=== PATIENT | female | born 1965 | race Caucasian/White ===

== ENCOUNTER → 2022-08-26 | Outpatient (CLI) | payer OTHER, SELFPAY ==
[2022-08-26 11:09] LABS: Follicle Stimulating Hormone 26.3 mIU/mL
[2022-08-28 15:12] LABS: Cancer Antigen 125 21.9 U/mL (0.0-38.1); Carbohydrate Ag 19-9 2261 17 U/mL (0-35); Carcinoembryonic Antigen 1.6 ng/mL (0.0-4.7)
== END | disposition home or self-care (01) ==
LOC: WOBLAB 09:23
PROVIDERS: PCP Obstetrics & Gynecology; Visit Provider Obstetrics & Gynecology
DX: N83.202 Unspecified ovarian cyst, left side (principal)
CPT/HCPCS: 36415; 82378; 83001; 83002; 86301; 86304

== ENCOUNTER → 2022-08-26 | Outpatient (CLI) | payer SELFPAY, OTHER ==
--- NOTE | 2022-08-26 07:29 | BI_ITS ---
MAMMOGRAPHY - BILATERAL SCREENING REASON FOR EXAM: Female, 57 years old. Routine annual screening examination. PERTINENT HISTORY: Non-contributory. TECHNIQUE: Digital bilateral breast paradise (3D mammographic acquisition) in the CC and MLO projections. 2-D mediolateral oblique (MLO) and craniocaudad (CC) views of both breasts were obtained. CAD: Full Field Digital Mammography with Computer Added Detection was performed. COMPARISON: None. Baseline examination. FINDINGS: Breast Composition: The breasts are almost entirely fatty. There are no dominant masses or suspicious calcifications. Small benign-appearing bilateral axillary lymph nodes. No other significant abnormalities are identified. BI/SCRN MAMM (CAD)W/PARADISE BILAT IMPRESSION: Negative screening mammogram. Yearly followup mammogram recommended. (A) ASSESSMENT CATEGORY: BIRADS Category 2: Benign. A letter regarding these results will be sent to the patient by the facility within 30 days. Approximately 10% of breast cancers are not detected by mammography. A normal mammogram should not delay biopsy of a clinically suspicious abnormality. [id number] Electronically Signed: Donny Rivas MD at 9:00 EST ,
== END | disposition home or self-care (01) ==
PROVIDERS: PCP Obstetrics & Gynecology; Referring Provider Obstetrics & Gynecology; Visit Provider Obstetrics & Gynecology
DX: Z12.31 Encounter for screening mammogram for malignant neoplasm of breast (principal)
CPT/HCPCS: 77063; 77067

== ENCOUNTER 2023-04-24 15:10 | Emergency (ER) | payer OTHER, SELFPAY ==
[2023-04-24 15:11] VITALS: BP 132/90; PULSE 121; RESP 18; TEMP 37; O2SAT 96
[2023-04-24 15:20] VITALS: BP 149/94; PULSE 116; RESP 22; O2SAT 98
--- NOTE | 2023-04-24 15:26 | EKG12_ITS ---
Test Reason : CP Blood Pressure : / mmHG Vent. Rate : 114 BPM Atrial Rate : 114 BPM P-R Int : 156 ms QRS Dur : 080 ms QT Int : 326 ms P-R-T Axes : 063 034 020 degrees QTc Int : 449 ms Sinus tachycardia Inferior infarct , age undetermined Abnormal ECG Confirmed by JENIFFER FLORES, TODD ([id number]), school photograph editor TODD BLAND ([id number]) on 04/26/2023 11:08:38 A M Referred By: AR Confirmed By:ОЛЬГА SWIFT MD
--- NOTE | 2023-04-24 15:30 | RAD_ITS ---
EXAM: XR CHEST, 1 VIEW CLINICAL INDICATION: chest pain TECHNIQUE: Frontal view of the chest. COMPARISON: No relevant prior studies available. FINDINGS: LUNGS AND PLEURAL SPACES: Unremarkable. No consolidation or edema. No pneumothorax. No effusion. HEART: Unremarkable. Cardiac silhouette not enlarged. MEDIASTINUM: Central airways and mediastinal contour are unremarkable. BONES/JOINTS: Unremarkable. SOFT TISSUES: Unremarkable. RAD/Chest 1 View (Portable) IMPRESSION: No radiographic evidence of acute cardiopulmonary disease. Electronically Signed: Todd Alonzo MD at 15:49 EDT ,
[2023-04-24] MEDS: Aspirin 81 MG TAB.CHEW 324 MG PO (15:33)
[2023-04-24 15:35] LABS: Absolute Lymphocyte Count 3.04 X10^3/uL (0.83-4.51); Absolute Neutrophil Count 4.6 X10^3/uL (2.0-7.7); Basophil# 0.08 X10^3/uL; Basophil% 0.9 % (0-1); Eosinophil# 0.12 X10^3/uL; Eosinophils% 1.4 % (0-5); Hematocrit 47.4 % (37-47); Hemoglobin 15.8 g/dL (12.0-15.0); Lymphocyte # 3.04 X10^3/ul (0.83-4.51); Lymphocyte % 34.9 % (19-41); Mean Corp Hgb Conc 33.3 g/dL (32-36); Mean Corpuscular Hgb 31.3 pg (27.0-32.0); Mean Corpuscular Volume 93.9 fL (81-99); Monocyte# 0.82 X10^3/uL; Monocyte% 9.4 % (0-10); NRBC Flagged by Analyzer 0 % (0-5); Neutrophil # 4.62 X10^3/uL (2.7-7.7); Neutrophil % 53.2 % (47-70); Platelet Count 288 K/mm3 (150-450); RBC Distribution Width CV 11.8 % (11.6-14.6); RBC Distribution Width SD 40.6 fl (35.1-43.9); Red Blood Count 5.05 M/mm3 (4.2-5.4); White Blood Count 8.7 K/mm3 (4.4-11.0)
[2023-04-24 15:55] LABS: Anion Gap 8 (5-15); BUN 25 mg/dL (7-18); BUN/Creat Ratio 21.4 RATIO (10-20); Calcium,Total 9.6 mg/dL (8.5-10.1); Chloride 102 mmol/L (98-107); Creatinine, Serum 1.17 mg/dL (0.55-1.02); EST Glomerular Filtration Rate 51 mL/min (>60); Est Glom Filt Rate - Afr Amer 61 mL/min (>60); Estimated Creatinine Clearance 77.61 ml/min; Glucose 115 mg/dL (74-106); Potassium 4.4 mmol/L (3.5-5.1); Sodium Level 134 mmol/L (136-145); Troponin-I HS (w/2H Reflex) 9 pg/mL (3.0-54.0)
--- NOTE | 2023-04-24 15:55 | ED.VIS.CHEST ---
HPI History of Present Illness Chief Complaint: Chest Pain Narrative Narrative: Patient presents with ongoing chest discomfort episodes and some dyspnea. It sounds like this has been going on for some months. But she cannot tell me how long the chest discomfort lasts when she gets it. She states it comes and goes but cannot define those time periods. I cannot get of this last minutes to hours or days. She saw her physician about 6 days ago. She was started on Lasix and telmisartan. She states the chest discomfort has gotten a little better since then. I cannot get what prompted her to come in here today versus one of the other days. Of note, she was seen quickly initially. She came in about the same time as a patient with a STEMI who was bradycardic and hypotensive and I had to initiate her work-up and then will go back and get more history. PFSH PFS Medical History Heart failure Hypertension Home Medications albuterol sulfate 90 mcg/actuation aerosol inhaler (Ventolin HFA) 2 puff inhalation Q4H PRN PRN Wheezing ##1 04/24/23 [Rx Last Taken Unknown] furosemide 40 mg tablet (Lasix) 40 mg PO DAILY 04/24/23 [History Last Taken 04/24/23] omeprazole 20 mg capsule,delayed release 20 mg PO DAILY #30 CAPSULES 04/24/23 [Rx Last Taken Unknown] telmisartan 40 mg tablet 40 mg PO DAILY 04/24/23 [History Last Taken 04/24/23] Allergy/AdvReac Type Severity Reaction Status Date / Time No Known Allergies Allergy Verified 04/24/23 15:13 Surgical History H/O: hysterectomy Social History Smoking Status: Never smoker ROS ROS ED ROS Narrative A complete review of systems was performed and is negative except as documented in the history of present illness. Some specific details below. Constitutional: No recent fevers or chills. EYE: No discharge, visual complaints, or pain. ENT: No difficulty swallowing. No swelling. No pain. No reflux symptoms. CV: See history of present illness. I am not sure if she is ever had an echocardiogram. Respiratory: See history of present illness. GI: No abdominal pain. No nausea vomiting diarrhea. No blood in stool. : No frequency dysuria or hematuria. Musculoskeletal: No recent trauma. No pains. No swelling now or at any time. Skin: No rash. Nondiaphoretic. Neuro: No weakness or numbness. Endocrine: No polyuria or polydipsia. EXAM Physical Exam Narrative Exam Narrative: CONSTITUTIONAL: Patient is nontoxic in appearance. The patient looks comfortable. Work of breathing looks normal. HEENT: No notable trauma. Mucous membranes moist. No sinus tenderness. No indication of pain with swallowing. EYES: No conjunctival injection. No proptosis. NECK:No JVD. No stridor. CARDIOVASCULAR: Mildly tachycardic rate. She does not know when this rate increased or if its been there for a long time. Regular rhythm. No notable murmur. No JVD. RESPIRATORY: No respiratory distress. Breathing is unlabored. No wheezes. No rhonchi. No rales are heard in any area. No pain with a deep breath. No chest wall tenderness. GASTROINTESTINAL: Not distended. Bowel sounds are normal. No tenderness. No guarding. No rebound. No palpable mass. No bruit is heard. GENITOURINARY: No tenderness over the bladder. No CVA tenderness. MUSCULOSKELETAL: Atraumatic. No peripheral edema at all. No cord. No tenderness along the deep venous system. No asymmetry. No distended veins. NEUROLOGICAL: Patient is alert and appropriate. No focal deficit noted. SKIN: No noted rashes. No diaphoresis. PSYCHIATRIC: Patient is calm. Mood is appropriate. Const Vital Signs: 04/24/23 15:11 04/24/23 15:24 04/24/23 15:20 Temperature 98.6 F Temperature Source Temporal Pulse Rate 121 H 116 H Respiratory Rate 18 22 H Respiratory Pattern Normal Blood Pressure 132/90 H 149/94 H Blood Pressure Mean 104 112 Pulse Ox 96 98 Oxygen Delivery Method Room Air Room Air 04/24/23 16:00 04/24/23 16:30 04/24/23 15:26 Temperature Temperature Source Pulse Rate 102 H 93 Respiratory Rate 13 15 Respiratory Pattern Blood Pressure 125/89 H 136/87 H Blood Pressure Mean 101 103 Pulse Ox 98 98 Oxygen Delivery Method Room Air Room Air Room Air 04/24/23 18:55 Temperature Temperature Source Pulse Rate 88 Respiratory Rate 18 Respiratory Pattern Blood Pressure 140/83 H Blood Pressure Mean 102 Pulse Ox 99 Oxygen Delivery Method Room Air MDM MDM MDM Narrative Medical decision making narrative: Further information from patient. She has no travel surgery immobilization personal family history of DVT or PE. No strong family history of heart disease. She has never had echocardiogram. She has never had viral cardiomyopathy or any known heart problems. Patient CBC showed mild elevation of the hemoglobin which is nonspecific. Platelets white count are normal. Electrolytes show minimal elevation in creatinine and glucose. No other acute abnormalities. Troponin is negative despite extensive symptoms. Beta natruretic peptide is less than 2/not measurable. My independent interpretation of the patient's single view chest x-ray shows no acute process. Mediastinum and cardiac silhouette looks normal. No sign of CHF. Final reading is also negative. With the patient's pain dyspnea weakness tachycardia we will do CTA of the chest. This is pending. CTA showing no sign of dissection or pulmonary embolus or other acute process to explain her symptoms. There is a age-indeterminate T12 fracture. Although she gets some pains in the chest its not in this area. I explained to the patient that she has been having dyspnea overall decrease in energy and some chest pain for a while now. I am not seeing signs of congestive heart failure. Her CT and BNP is normal. Her troponin and repeat troponin are normal. She states she hears wheezing on occasion but I do not hear it now. I will write for albuterol that she can use as needed to see if this helps. I recommend she st start Prilosec to see if this helps any of her chest pain symptoms. It may not be of benefit but if it does help it gives us further indication of a possible cause. I explained that they still may do outpatient echo or stress test or other blood work. But I do not see indication that she needs to be admitted. Her heart rate is now down to normal and her vitals are normal and her exam is normal now. Lab Data Attestation: I reviewed the patient's lab results. Labs: Laboratory Results - last 24 hr 04/24/23 04/24/23 15:28 17:40 WBC 8.7 RBC 5.05 Hgb 15.8 H Hct 47.4 H MCV 93.9 MCH 31.3 MCHC 33.3 RDW Std Deviation 40.6 RDW Coeff of Raman 11.8 Plt Count 288 MPV 10.0 Immature Gran % (Auto) 0.200 Neut % (Auto) 53.2 Lymph % (Auto) 34.9 Cassia % (Auto) 9.4 Eos % (Auto) 1.4 Baso % (Auto) 0.9 Absolute Neuts (auto) 4.6 Absolute Lymphs (auto) 3.04 Nucleated RBC % 0 Sodium 134 L Potassium 4.4 Chloride 102 Carbon Dioxide 24.0 Anion Gap 8 BUN 25 H Creatinine 1.17 H Estim Creat Clear Calc 77.61 Est GFR (MDRD) Af Amer 61 Est GFR (MDRD) Non-Af 51 L BUN/Creatinine Ratio 21.4 H Glucose 115 H Calcium 9.6 Troponin I High Sens 9 7 B-Natriuretic Peptide < 2.0 Radiography Diagnostic Testing: Clinical Impression(s) from Imaging Studies Chest X-Ray 04/24/23 15:30 IMPRESSION: No radiographic evidence of acute cardiopulmonary disease. Electronically Signed: Todd Alonzo MD at 15:49 EDT , Chest CTA 04/24/23 16:30 IMPRESSION: 1. No demonstrated pulmonary embolism or arterial dissection. 2. There is a compression deformity of the spine at level: T12. These are age-indeterminate. MRI could further evaluate if of concern. Electronically Signed: Todd Alonzo MD at 17:46 EDT , EKG Initial EKG: Comments: My independent interpreted the patient's EKG shows a sinus rhythm with tachycardic rate at 114. No ectopy. Diffuse nonspecific ST and T wave change but no indication of acute infarct. ND interval, QRS duration and QTc are normal. I have no prior EKGs available in our system. Discharge Plan Triage Chief Complaint: Chest Pain ED Provider: Deep Longo Dx/Rx/DC Orders Clinical Impression: Generalized weakness, Dyspnea, Chest pain Instructions: ED Chest Pain, Uncertain Cause, ED Dyspnea Prescriptions: New omeprazole [omeprazole] 20 mg capsule,delayed release(DR/EC) 20 mg PO DAILY Qty: 30 0RF albuterol sulfate [Ventolin HFA] 90 mcg/actuation HFA aerosol inhaler 2 puff inhalation Q4H PRN PRN (Reason: Wheezing) Qty: 1 0RF No Action telmisartan 40 mg tablet 40 mg PO DAILY furosemide [Lasix] 40 mg tablet 40 mg PO DAILY Primary Care Provider: Parker Santos Referrals: Parker Santos DO [Primary Care Provider] - As soon as possible Disposition Disposition: Home, Self Care
[2023-04-24 16:00] VITALS: BP 125/89; PULSE 102; RESP 13; O2SAT 98
[2023-04-24 16:30] VITALS: BP 136/87; PULSE 93; RESP 15; O2SAT 98
--- NOTE | 2023-04-24 16:30 | CT_ITS ---
EXAM: CT ANGIOGRAPHY CHEST WITHOUT AND WITH INTRAVENOUS CONTRAST CLINICAL INDICATION: PE TECHNIQUE: Helically acquired angiography images were obtained of the chest without and with intravenous contrast. This CT exam was performed using one or more of the following dose reduction techniques: automated exposure control, adjustment of the mA and/or kV according to patient size, and/or use of iterative reconstruction technique. MIP reconstructed images were created and reviewed. CONTRAST: IV 100mL [id number] RADIATION DOSE: CTDIvol = 9.98 mGy, DLP = 418.85 mGy-cm COMPARISON: No relevant prior studies available. FINDINGS: PULMONARY ARTERIES: Unremarkable. No demonstrated pulmonary embolism or arterial dissection. AORTA: There is atherosclerotic calcification of the aortic arch with tortuosity and elongation of the aortic arch and descending thoracic aorta. Normal in caliber. No evidence of dissection. GREAT VESSELS OF AORTIC ARCH: See above. LUNGS AND PLEURAL SPACES: Unremarkable. No mass. No consolidation or edema. No pleural effusion or thickening. No pneumothorax. HEART: There are calcifications of the coronary arteries. Heart size is normal. No pericardial effusion. MEDIASTINUM: Unremarkable. No mediastinal or hilar adenopathy. Esophagus is unremarkable. No hiatal hernia. THYROID: Unremarkable. No thyroid lesions. BONES/JOINTS: There is a compression deformity of the spine at level: T12. These are age-indeterminate. MRI could further evaluate if of concern. There are degenerative changes of the shoulders. There are multi-level degenerative changes of the thoracic spine. No suspicious lytic or blastic abnormality. OTHER FINDINGS: Post-processing of the angiographic images was performed, with axial imaging and 3D reconstruction. MIPS images were obtained. CT/CTA Chest W/WO Contrast IMPRESSION: 1. No demonstrated pulmonary embolism or arterial dissection. 2. There is a compression deformity of the spine at level: T12. These are age-indeterminate. MRI could further evaluate if of concern. Electronically Signed: Todd Alonzo MD at 17:46 EDT ,
[2023-04-24 16:34] LABS: BNP,B-Type NATRIURETIC PEPTIDE < 2.0 pg/mL (0-100)
[2023-04-24 17:32] LABS: Reflex Troponin-HS? (from REC) Y
[2023-04-24 18:13] LABS: Troponin-I HS 7 pg/mL (3.0-54.0)
[2023-04-24 18:55] VITALS: BP 140/83; PULSE 88; RESP 18; O2SAT 99
[2023-04-24 19:17] VITALS: BP 140/83; PULSE 107; RESP 12; O2SAT 97
== END 2023-04-24 19:19 | disposition home or self-care (01) ==
PROVIDERS: Emergency Provider Emergency Medicine; PCP Family Medicine; Visit Provider Emergency Medicine
DX: R07.9 Chest pain, unspecified (principal); I11.0 Hypertensive heart disease with heart failure; I50.9 Heart failure, unspecified; R53.1 Weakness; Z79.899 Other long term (current) drug therapy; Z90.710 Acquired absence of both cervix and uterus; R06.00 Dyspnea, unspecified
CPT/HCPCS: 71045; 71275; 80048; 83880; 84484; 85025; 93005; 99285; Q9967

== ENCOUNTER → 2023-06-30 | Outpatient (CLI) | payer OTHER, SELFPAY ==
[2023-06-30 16:13] LABS: Absolute Lymphocyte Count 2.12 X10^3/uL (0.83-4.51); Absolute Neutrophil Count 3.1 X10^3/uL (2.0-7.7); Basophil# 0.04 X10^3/uL; Basophil% 0.7 % (0-1); Eosinophil# 0.17 X10^3/uL; Eosinophils% 2.8 % (0-5); Hematocrit 42.3 % (37-47); Lymphocyte # 2.12 X10^3/ul (0.83-4.51); Lymphocyte % 34.9 % (19-41); Mean Corp Hgb Conc 33.1 g/dL (32-36); Mean Corpuscular Hgb 32.3 pg (27.0-32.0); Mean Corpuscular Volume 97.5 fL (81-99); Mean Platelet Vol. 10.7 fl (6.2-12.0); Monocyte# 0.59 X10^3/uL; Monocyte% 9.7 % (0-10); NRBC Flagged by Analyzer 0 % (0-5); Neutrophil # 3.14 X10^3/uL (2.7-7.7); Neutrophil % 51.7 % (47-70); Platelet Count 168 K/mm3 (150-450); RBC Distribution Width CV 11.7 % (11.6-14.6); RBC Distribution Width SD 42.3 fl (35.1-43.9); Red Blood Count 4.34 M/mm3 (4.2-5.4); White Blood Count 6.1 K/mm3 (4.4-11.0)
[2023-06-30 16:53] LABS: Anion Gap 5 (5-15); BUN 22 mg/dL (7-18); BUN/Creat Ratio 23.6 RATIO (10-20); Calcium,Total 9.1 mg/dL (8.5-10.1); Chloride 108 mmol/L (98-107); Creatinine, Serum 0.93 mg/dL (0.55-1.02); EST Glomerular Filtration Rate 66 mL/min (>60); Est Glom Filt Rate - Afr Amer 79 mL/min (>60); Glucose 83 mg/dL (74-106); Potassium 3.9 mmol/L (3.5-5.1); Sodium Level 139 mmol/L (136-145)
== END | disposition home or self-care (01) ==
LOC: LAB 14:43
PROVIDERS: PCP Family Medicine; Referring Provider Internal Medicine Cardiovascular Disease; Visit Provider Internal Medicine Cardiovascular Disease
DX: R06.02 Shortness of breath (principal)
CPT/HCPCS: 36415; 80048; 85025

== ENCOUNTER 2023-07-13 10:42 | Day surgery (SDC) | payer SELFPAY, OTHER ==
[2023-07-12 06:59] VITALS: BMI 39.4
--- NOTE | 2023-07-13 12:13 | CL.D_ITS ---
Patient Name: CHAUNCEY VERDUGO Study Date: 07/13/2023 Performing: Daron Soares MD Ht: 61 inches 154.94 cm : 1965 Wt: 209 lbs 94.8 kg Age: 58 Gender: female BSA: 1.92 PROCEDURE(S) PERFORMED [id number])LHC/COR/LV CLINICAL PROFILE AND INDICATIONS Indications: Worsening Angina Heart Failure: None Stress/Imaging Stress/Image Study Performed: No CAD Presentations: Symptom unlikely to be ischemic. CONCLUSIONS Normal coronary arteries Normal LV size, wall motion,and systolic function RECOMMENDATIONS Medical therapy DESCRIPTION OF PROCEDURE The patient arrived to the procedure lab. The risks and benefits of the procedure as well as a full description of our services here and current unavailability of surgical backup were fully explained to the patient and/or their significant other prior to the catheterization. The Timeout was completed, verifying the correct patient and procedure. The patient's procedural site was prepped and draped in the usual fashion. Local anesthetic was given subcutaneously to right radial region with Lidocaine 2%. Using a modified Seldinger technique, arterial access was obtained via the right radial artery, a 6Fr sheath was inserted. Left Coronary Artery selective angiography was performed in multiple views using a 5 Fr. 4.0 [place] catheter. Right Coronary Artery selective angiography was then performed in multiple views using a 5 Fr. 4.0 [place] catheter. Left Ventriculography was performed in SAMPSON projection using a 5 Fr. Pigtail catheter. LV to AO pullback pressures were then recorded.The arterial sheath was pulled and a TR Band was applied for hemostasis CORONARY ANGIOGRAPHY DOMINANCE: Right Dominant LEFT HEART ASSESSMENT Left Ventricular Ejection Fraction: by LV Gram 60 % Normal LV wall motion Normal Left Ventricular systolic function LEFT MAIN: Angiographically normal LEFT ANTERIOR DESCENDING ARTERY: Angiographically normal CIRCUMFLEX ARTERY: Angiographically normal RIGHT CORONARY ARTERY: Angiographically normal COMPLICATIONS No Complications PROCEDURE MEDICATIONS Fentanyl 50 mcg IV Versed 1 mg IV Oxygen: 2 L/min via nasal cannula Heparin given IA 07/13/2023 11:55:11 Verapamil 2.5mg, Ntg 200mcgs, 2000 units of Heparin given IA 07/13/2023 11:55:11 SUMMARY OF HEMODYNAMIC DATA Time AIR REST ECG 11:04:59 AO 102/68 (82) SA 11:57:19 LV 101/-1, 8 12:01:49 LV 118/2, 7 12:01:56 LV 102/1, 7 12:02:19 LV 82/3, 11 12:02:25 LVp 74/3, 17 12:02:32 AOp 85/36 (50) 12:02:38 12:11:32 Signed By Daron Soares MD On 07/13/2023 12:12:33 Daron Soares MD
== END 2023-07-13 13:40 | disposition home or self-care (01) ==
LOC: CLSP 10:44
PROVIDERS: PCP Family Medicine; Referring Provider Internal Medicine Cardiovascular Disease; Visit Provider Internal Medicine Cardiovascular Disease
DX: R06.02 Shortness of breath (principal); I10 Essential (primary) hypertension; E78.5 Hyperlipidemia, unspecified; Z79.899 Other long term (current) drug therapy; Z79.82 Long term (current) use of aspirin; Z82.49 Family history of ischemic heart disease and other diseases of the circulatory system
CPT/HCPCS: 93458; 99152; 99153; J7040; C1769; C1894; Q9967

== ENCOUNTER → 2025-07-24 | Outpatient (CLI) | payer SELFPAY, OTHER ==
--- NOTE | 2025-07-24 13:09 | US_ITS ---
PROCEDURE: PELVIC W/ TRANSVAGINAL REASON FOR EXAM: PELVIC PAIN Status post hysterectomy. TECHNIQUE: Procedure Code: [id number] Modality: US Procedure: PELVIC W/ TRANSVAGINAL COMPARISON: None FINDINGS: Measurements: Uterus: Patient is status post hysterectomy. Right Ovary: 2.2 cm x 1.4 cm x 1.2 with a volume of 1.8 mL. Left Ovary: 2.1 cm x 1 cm x 1.1 cm with a volume of 1.2 mL. TRANSABDOMINAL: Right ovary: Normal size and echotexture. Left ovary: Normal size and echotexture. Other: Findings suggestive of dilated bilateral fallopian tubes. Transvaginal sonography was performed as transabdominal imaging did not explain the patient's presenting symptoms. TRANSVAGINAL: Right ovary: Normal size and echotexture. Left ovary: Normal size and echotexture. Other adnexal findings: Findings suggestive of dilated bilateral fallopian tubes. Cul-de-sac: No free intraperitoneal fluid identified. Tenderness: No tenderness US/Pelvic w/ Transvaginal IMPRESSION: Status post hysterectomy. Tubular structures are seen in both adnexa suggestive of dilated fallopian tube s. Reading Location: [id number]
--- NOTE | 2025-07-24 14:45 | BI_ITS ---
EXAM: SCRN MAMM (CAD)W/PARADISE BILAT DATE: 07/24/2025 CLINICAL HISTORY: F, Age 60 y/o , SCREEN No family history. TECHNIQUE: Procedure Code: [id number] Modality: MG Procedure: SCRN MAMM (CAD)W/PARADISE BILAT COMPARISON: Prior exam(s) dated August 26, 2022.. FINDINGS: TISSUE DENSITY: The breasts are almost entirely fatty. Bilateral Breast Mammographic Findings: No significant masses, calcifications or other abnormalities are identified. Stable bilateral fat containing axillary lymph nodes. No suspicious masses, areas of developing architectural distortion, or suspicious calcifications. There has been no significant interval change. BI/SCRN MAMM (CAD)W/PARADISE BILAT IMPRESSION: Stable bilateral screening mammogram. OVERALL FINAL ASSESSMENT BI-RADS 2: BENIGN RECOMMENDATION: Routine annual follow-up in 1 Year Additional Recommendation none A letter with findings and recommendations will be mailed to the patient. Reading Location: [facility]
== END | disposition home or self-care (01) ==
LOC: OPUS 13:04 → US 13:05
PROVIDERS: PCP Family Medicine; Referring Provider Nurse Practitioner Women's Health; Visit Provider Nurse Practitioner Women's Health
DX: Z12.31 Encounter for screening mammogram for malignant neoplasm of breast (principal)
CPT/HCPCS: 76830; 76856; 77063; 77067